=== PATIENT | male | born 1960 | race Caucasian/White ===

== ENCOUNTER 2018-02-02 11:14 | Emergency (ER) | payer OTHER ==
[~2018-02-02] VITALS: Ht 185.4 cm; Wt 102.0 kg
[2018-02-02 11:15] VITALS: Ht 185.4 cm; Wt 102.0 kg
[2018-02-02 13:12] VITALS: BP 119/49
== END 2018-02-02 13:12 | disposition home or self-care (01) ==
LOC: ED 11:14
DX: F11.23 Opioid dependence with withdrawal (principal); R53.1 Weakness; R09.89 Other specified symptoms and signs involving the circulatory and respiratory systems; R68.83 Chills (without fever); Z88.0 Allergy status to penicillin